=== PATIENT | female | born 1995 | race Hispanic/Latino ===

== ENCOUNTER 2016-10-29 04:39 | Emergency (ER) | payer OTHER ==
[~2016-10-29] VITALS: Ht 162.6 cm; Wt 59.5 kg
[~2016-10-29 04:39] MED LIST: AMOX500T2 PO; IBUP-1827 PO; METH-313 PO; PENI500T PO; RANITIDINE
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
[2016-10-29 04:49] VITALS: BP 104/72; PULSE 69; RESP 16; O2SAT 100
[2016-10-29 07:03] VITALS: BP 97/60; PULSE 107; RESP 16; O2SAT 97
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
== END 2016-10-29 07:01 | disposition home or self-care (01) ==
LOC: SED 04:39
DX: O9A.312 Physical abuse complicating pregnancy, second trimester (principal); O9A.212 Injury, poisoning and certain other consequences of external causes complicating pregnancy, second trimester; S90.32XA Contusion of left foot, initial encounter; Y04.0XXA Assault by unarmed brawl or fight, initial encounter; Y92.013 Bedroom of single-family (private) house as the place of occurrence of the external cause; Y93.89 Activity, other specified; Y99.8 Other external cause status; O99.89 Other specified diseases and conditions complicating pregnancy, childbirth and the puerperium; R10.30 Lower abdominal pain, unspecified; R68.84 Jaw pain; H92.02 Otalgia, left ear; K21.9 Gastro-esophageal reflux disease without esophagitis; Z3A.24 24 weeks gestation of pregnancy; Z91.410 Personal history of adult physical and sexual abuse